=== PATIENT | female | born 1990 | race Caucasian/White ===

== ENCOUNTER 2016-06-05 15:10 | Observation (INO) | payer MEDICAID ==
[2016-06-05] MEDS ORDERED: LACTATED RINGER'S 1,000 ML IV ONE (16:15)
[2016-06-05 16:53] LABS: Urine Bilirubin Negative (Negative); Urine Blood Negative /uL (Negative); Urine Color Yellow (Yellow); Urine Glucose Normal (Normal); Urine Ketone Negative (Negative); Urine Nitrite Negative (Negative); Urine RBC 1 /hpf (0 - 4); Urine Squamous Epithelial Cell FEW /hpf (<5); Urine Urobilinogen Normal (Negative)
[2016-06-05 17:00] LABS: Albumin 2.4 g/dL (3.4-5.0); BUN/Creatinine Ratio 11.3; Bilirubin, Total 0.8 mg/dL (0.2-1.0); Calcium 8.2 mg/dL (8.5-10.1); Potassium 3.6 mmol/L (3.5-5.1); Total Protein 6.2 g/dL (6.4-8.2); Uric Acid 3.1 mg/dL (2.6-6.0)
[2016-06-05 17:03] LABS: INR 0.93 (0.9-1.15); Partial Thromboplastin Time 30.4 sec (22.64-33.71); Prothrombin Time 9.6 sec (9.37-12.3)
[2016-06-05 17:10] LABS: Basophils # (auto) 0 uL; Basophils % (auto) 0.2 % (0.0-2.0); Eosinophils # (auto) 0 uL; Eosinophils % (auto) 0.2 % (0.0-7.0); Hematocrit 30.7 % (36.0-46.0); Hemoglobin 10.3 g/dL (12.2-16.2); Lymphocytes # (auto) 1.4 uL; Lymphocytes % (auto) 17.4 % (10.0-50.0); Mean Corpuscular Hemoglobin 33.6 pg (28.0-32.0); Mean Corpuscular Hgb Conc. 33.4 g/dL (32.0-36.0); Mean Corpuscular Volume 100.8 fL (80.0-100.0); Mean Platelet Volume 9.3 fL (7.4-10.4); Monocytes # (auto) 0.7 uL; Monocytes % (auto) 8.9 % (0.0-12.0); Neutrophils # (auto) 5.8 uL; Neutrophils % (auto) 73.3 % (37.0-80.0); Platelet Count (auto) 170 10^3/uL (140-450); Red Cell Distribution Width 13.8 % (11.6-16.0); White Blood Cell 7.9 10^3/uL (4.4-10.8)
== END 2016-06-05 17:50 | disposition home or self-care (01) | DRG 566 ==
LOC: LDRP 15:10
PROVIDERS: ADMIT Obstetrics & Gynecology; ATTEND Obstetrics & Gynecology
DX: O26.893 Other specified pregnancy related conditions, third trimester (principal); J32.9 Chronic sinusitis, unspecified; R51 Headache; R10.11 Right upper quadrant pain; O99.513 Diseases of the respiratory system complicating pregnancy, third trimester; Z3A.39 39 weeks gestation of pregnancy
CPT/HCPCS: 36415; 59025; 80053; 81001; 81002; 84550; 85025; 85049; 85362; 85379; 85610; 85730; G0378; G0434; 96366

== ENCOUNTER 2016-06-07 22:51 | Observation (INO) | payer MEDICAID ==
[2016-06-08] MEDS ORDERED: ACETAMINOPHEN/CODEINE#3 (300/30mg) TAB ONE (00:14)
[2016-06-08] MEDS ORDERED: ACETAMINOPHEN/CODEINE#3 (300/30mg) TAB PO ONE (00:30)
[2016-06-08] MEDS ORDERED: OXYTOCIN 10UNIT/ML 1ML VIAL ONE (01:15)
[2016-06-08] MEDS ORDERED: LIDOCAINE 2%HCL (LOCAL ANESTH.) INJ 20ML MDV ONE (01:42)
[2016-06-09] MEDS ORDERED: PREN-96 PO (08:32)
== END 2016-06-08 00:52 | disposition home or self-care (01) | DRG 566 ==
LOC: LDRP 22:51
PROVIDERS: ADMIT Obstetrics & Gynecology; ATTEND Obstetrics & Gynecology
DX: O62.9 Abnormality of forces of labor, unspecified (principal); Z3A.39 39 weeks gestation of pregnancy
CPT/HCPCS: 59025; 81002; G0378; J2590

== ENCOUNTER 2016-06-08 01:15 | Inpatient (IN) | payer MEDICAID ==
[2016-06-08] MEDS ORDERED: LACT. RINGERS/OXYTOCIN 20UNITS 1,000 ML IV ONE (01:44)
[2016-06-08] MEDS ORDERED: DERMOPLAST 60ML BOTTLE TOP PRN (02:00)
[2016-06-08] MEDS ORDERED: WITCH HAZEL-GLYCERIN PAD TOP PRN (02:00)
[2016-06-08] MEDS ORDERED: PHISODERM TOP SOLN 240ML BTL TOP PRN (02:00)
[2016-06-08] MEDS ORDERED: LIDOCAINE 2%HCL (LOCAL ANESTH.) INJ 20ML MDV IJ ONE (02:00)
[2016-06-08] MEDS ORDERED: METHYLERGONOVINE MALEATE 0.2 MG/ML AMP IM PRN (02:00)
[2016-06-08 02:09] LABS: Urine RBC None Seen /hpf (0 - 4)
[2016-06-08 02:24] LABS: Urine Bilirubin Negative (Negative); Urine Color Yellow (Yellow); Urine Glucose Normal (Normal); Urine Nitrite Negative (Negative); Urine Squamous Epithelial Cell FEW /hpf (<5); Urine Urobilinogen Normal (Negative); Urine pH 6.5 (5.0-8.0)
[2016-06-08 02:25] LABS: Urine Blood 1+ /uL (Negative); Urine Ketone 3+ (Negative)
[2016-06-08] MEDS ORDERED: LACT. RINGERS/OXYTOCIN 20UNITS 500 ML IV ONE (02:25)
[2016-06-08] MEDS ORDERED: OXYTOCIN 10UNIT/ML 1ML VIAL IM ONE (02:30)
[2016-06-08] MEDS ORDERED: IBUPROFEN 600 MG TAB PO ONE (02:31)
[2016-06-08 03:05] LABS: Basophils # (auto) 0 uL; Basophils % (auto) 0.3 % (0.0-2.0); Eosinophils # (auto) 0 uL; Lymphocytes % (auto) 12.6 % (10.0-50.0); Mean Corpuscular Hgb Conc. 33.2 g/dL (32.0-36.0); Mean Corpuscular Volume 99.4 fL (80.0-100.0); Mean Platelet Volume 8.7 fL (7.4-10.4); Monocytes # (auto) 0.5 uL; Monocytes % (auto) 6.2 % (0.0-12.0); Neutrophils # (auto) 6.5 uL; Neutrophils % (auto) 80.9 % (37.0-80.0); Platelet Count (auto) 220 10^3/uL (140-450); Red Cell Distribution Width 13.4 % (11.6-16.0)
[2016-06-08 03:13] LABS: INR 0.97 (0.9-1.15); Partial Thromboplastin Time 28.6 sec (22.64-33.71)
[2016-06-08 03:19] LABS: BUN/Creatinine Ratio 11.7; Potassium 3.4 mmol/L (3.5-5.1)
[2016-06-08 03:20] LABS: Albumin 2.1 g/dL (3.4-5.0); Calcium 7.8 mg/dL (8.5-10.1)
[2016-06-08 03:23] LABS: Bilirubin, Total 0.7 mg/dL (0.2-1.0); Total Protein 6.4 g/dL (6.4-8.2)
[2016-06-08] MEDS: CEPHALEXIN 250 MG CAP PO SCH ×4 (05:49→22:05)
[2016-06-08 07:30] VITALS: BP 112/64
[2016-06-08 12:00] VITALS: BP 138/87
[2016-06-08] MEDS: IBUPROFEN 600 MG TAB PO PRN ×2 (12:29→21:06)
[2016-06-08 16:00] VITALS: BP 119/82
[2016-06-08 19:30] VITALS: BP 120/80
[2016-06-08 23:39] VITALS: BP 128/80
[2016-06-09 04:30] VITALS: BP 121/78
[2016-06-09] MEDS: CEPHALEXIN 250 MG CAP PO SCH (05:31)
[2016-06-09 07:30] VITALS: BP 102/60
[2016-06-09] MEDS ORDERED: PREN-96 PO (08:32)
== END 2016-06-09 11:10 | disposition home or self-care (01) | DRG 560 ==
LOC: LDRP 01:15
PROVIDERS: ADMIT Obstetrics & Gynecology; ATTEND Obstetrics & Gynecology
PROC: 10E0XZZ Delivery of Products of Conception, External Approach (ICD-10-PCS; principal; 2016-06-08)
DX: O70.0 First degree perineal laceration during delivery (principal); Z37.0 Single live birth; Z3A.39 39 weeks gestation of pregnancy
CPT/HCPCS: 36415; 59409; 80053; 81001; 85025; 85049; 85610; 85730; 86850; 86900; 86901; 96365; 96366; 96372; J2590